=== PATIENT | female | born 1945 | race Caucasian/White ===

== ENCOUNTER 2017-02-13 15:58 | Inpatient (IN) | payer OTHER ==
[~2017-02-13] VITALS: Ht 167.6 cm; Wt 117.1 kg
[~2017-02-13 15:58] MED LIST: ADULT LOW DOSE81 M1 PO; CALCIUM 600 +1 EACH PO; CALCIUM500 M4 PO; CELEBREX200 MG PO; DIAZEPAM2 MG PO; FISH OIL CONC1 EACH PO; LO-DOSE ASPIRIN81 M2 PO; Lovenox SC; Milk Of Magnesia,MOM PO; NEURONTIN600 MG PO; NEXIUM40 MG PO; Neurontin PO; Omega III EPA + DHA PO; PAXIL20 MG PO; PROVIGIL100 MG PO; PROVIGIL200 MG PO; Paxil PO; Percocet 5/325,Endoc PO; Rebif SC; Valium PO; ZOCOR40 MG PO; celeBREX PO; predniSONE PO
[2017-02-13 16:50] LABS: HEMATOCRIT 44.8 % (36.0-46.0); HEMOGLOBIN 14.9 G/DL (11.9-15.5); MCH 31.6 PG (29.0-34.0); MCHC 33.3 G/DL (30.0-36.0); MCV 94.9 FL (83-99); PLATELET COUNT 243 K/uL (156-360); RBC DIS.WIDTH-CV 12.9 % (11.8-14.6); RBC DIS.WIDTH-SD 45.4 % (39-53); RED BLOOD COUNT 4.72 M/uL (3.80-5.20); WHITE BLOOD COUNT 15.1 K/uL (4.1-10.2)
[2017-02-13 17:00] LABS: CHLORIDE 98 mEq/L (99-109); POTASSIUM 4.7 mEq/L (3.7-5.4); SODIUM 135 mEq/L (136-147)
[2017-02-13 17:01] LABS: GLUCOSE 124 mg/dL (70-99)
[2017-02-13 17:05] LABS: CREATININE 0.9 mg/dL (0.6-1.3); GFR ESTIMATE (CALCULATED) > 59 mL/min/
[2017-02-13 17:06] LABS: UREA NITROGEN (BUN) 14 mg/dL (9-23)
[2017-02-13 17:12] LABS: TROP-I INTERPRETATION NEGATIVE; TROPONIN-I < 0.01 ng/mL (0.0-0.30)
[2017-02-13 19:25] LABS: BASE EXCESS 2.6 mEq/L (-3 to +3); BICARBONATE 28.9 mEq/L (22-26); CARBOXY HGB 1.6 % (0-5); COMMENTS - BLOOD GASES A+C+; DEVICE 840VENT; FI02 60 %; METHEMOGLOBIN 0.9 % (0-1.5); MODE SPONT; PCO2 50 mm Hg (35-45); PEEP 6 CM/H20; PO2 84 mm Hg (80-100); PRES. SUPPORT 12 CM/H2O; SITE RR; TOTAL RESP RATE 18 resp/min; pH 7.37 (7.35-7.45)
[2017-02-14] MEDS ORDERED: CITALOPRAM HBR40 MG PO (00:01)
[2017-02-14] MEDS ORDERED: ARIPIPRAZOLE2 MG PO (00:01)
[2017-02-14] MEDS ORDERED: GABAPENTIN600 MG PO (00:03)
[2017-02-14] MEDS ORDERED: REBIF REBI44 MCG/0.5 SC (00:04)
[2017-02-14] MEDS ORDERED: TOLTERODINE TART2 MG PO (00:05)
[2017-02-14] MEDS ORDERED: OXYCODONE-APAP1 EACH PO (00:07)
[2017-02-14] MEDS ORDERED: SIMVASTATIN40 MG PO (00:08)
[2017-02-14] MEDS ORDERED: MELOXICAM15 MG PO (00:08)
[2017-02-14] MEDS ORDERED: FLOVENT DISKUS1 DISK IH (00:10)
[2017-02-14] MEDS ORDERED: VENTOLIN HFA18 GM IH (00:13)
[2017-02-14] MEDS ORDERED: VITAMIN B-6100 MG PO (00:23)
[2017-02-14] MEDS ORDERED: VITAMIN C500 M1 PO (00:24)
[2017-02-14 03:51] VITALS: BP 155/70
[2017-02-14 05:20] LABS: ALBUMIN 3.4 g/dL (3.2-4.8); CHLORIDE 104 mEq/L (99-109); POTASSIUM 4.2 mEq/L (3.7-5.4); SODIUM 139 mEq/L (136-147)
[2017-02-14 05:23] LABS: TOTAL PROTEIN 6.4 g/dL (6.4-8.3)
[2017-02-14 05:25] LABS: TOTAL BILIRUBIN 0.4 mg/dL (0.0-1.0)
[2017-02-14 05:26] LABS: ALKALINE PHOSPHATASE 87 IU/L (3-129); CREATININE 0.8 mg/dL (0.6-1.3); GFR ESTIMATE (CALCULATED) > 59 mL/min/
[2017-02-14 05:28] LABS: AST (GOT) 27 IU/L (2-34); GLUCOSE 204 mg/dL (70-99); UREA NITROGEN (BUN) 15 mg/dL (9-23)
[2017-02-14 05:29] LABS: ALT (GPT) 29 IU/L (3-49)
[2017-02-14 07:32] VITALS: BP 155/72
[2017-02-14 08:28] LABS: BASE EXCESS 1.3 mEq/L (-3 to +3); BICARBONATE 25.9 mEq/L (22-26); CARBOXY HGB 0.9 % (0-5); COMMENTS - BLOOD GASES A+C+; DEVICE HHFNC; FI02 50 %; METHEMOGLOBIN 1.2 % (0-1.5); O2 FLOW 35 L/MIN; PCO2 40 mm Hg (35-45); PO2 71 mm Hg (80-100); SITE LR; TOTAL RESP RATE 20 resp/min; pH 7.42 (7.35-7.45)
[2017-02-14 12:02] VITALS: BP 135/75
[2017-02-14 16:31] VITALS: BP 146/81
[2017-02-14 20:17] VITALS: BP 134/68
[2017-02-14 23:49] VITALS: BP 144/67
[2017-02-15 03:15] VITALS: BP 163/79
[2017-02-15 06:32] LABS: BASOPHIL (%) 0.1 % (0-1); EOSINOPHIL (%) 0 % (0-5); HEMATOCRIT 36.3 % (36.0-46.0); IMMATURE GRANULOCYTE (%) 1.8 % (0.0-0.7); LYMPHOCYTE (%) 9.7 % (15-42); LYMPHOCYTE COUNT 1.7 K/uL (1.0-2.8); MCH 31.3 PG (29.0-34.0); MCHC 32.2 G/DL (30.0-36.0); MCV 97.1 FL (83-99); MONOCYTE (%) 3.4 % (3-12); MONOCYTE COUNT 0.6 K/uL (0-0.8); NEUTROPHIL COUNT 14.7 K/uL (1.8-6.4); PLATELET COUNT 217 K/uL (156-360); RBC DIS.WIDTH-CV 13.2 % (11.8-14.6); RBC DIS.WIDTH-SD 47.6 % (39-53); WHITE BLOOD COUNT 17.3 K/uL (4.1-10.2)
[2017-02-15 06:33] LABS: HEMOGLOBIN 11.7 G/DL (11.9-15.5); RED BLOOD COUNT 3.74 M/uL (3.80-5.20)
[2017-02-15 06:39] LABS: CHLORIDE 109 MEQ/L (99-109); CREATININE 0.7 MG/DL (0.6-1.3); GFR ESTIMATE (CALCULATED) > 59 mL/min/; GLUCOSE 191 mg/dL (70-99); POTASSIUM 4.5 MEQ/L (3.7-5.4); SODIUM 143 MEQ/L (136-147)
[2017-02-15 06:45] LABS: UREA NITROGEN (BUN) 24 mg/dL (9-23)
[2017-02-15 07:38] VITALS: BP 143/69
[2017-02-15 12:22] VITALS: BP 136/65
[2017-02-15 16:13] LABS: APPEARANCE CLEAR ((CLEAR)); BILIRUBIN NEGATIVE; BLOOD NEGATIVE; COLOR YELLOW ((YELLOW)); GLUCOSE (STRIP) >=500; KETONES NEGATIVE; LEUKOCYTES NEGATIVE; NITRITE NEGATIVE; PROTEIN (STRIP) NEGATIVE; SPECIFIC GRAVITY 1.027 (1.000-1.030); UCUL ADDED? NO; UROBILINOGEN 0.2 MG/DL (0.2-1.0)
[2017-02-15 16:18] VITALS: BP 148/66
[2017-02-16 00:48] VITALS: BP 150/70
[2017-02-16 04:37] VITALS: BP 148/77
[2017-02-16 05:47] LABS: BASOPHIL (%) 0.1 % (0-1); EOSINOPHIL (%) 0 % (0-5); HEMATOCRIT 35.5 % (36.0-46.0); HEMOGLOBIN 11.5 G/DL (11.9-15.5); LYMPHOCYTE (%) 11.7 % (15-42); LYMPHOCYTE COUNT 1.8 K/uL (1.0-2.8); MCH 31.4 PG (29.0-34.0); MCHC 32.4 G/DL (30.0-36.0); MONOCYTE (%) 4.2 % (3-12); MONOCYTE COUNT 0.6 K/uL (0-0.8); NEUTROPHIL COUNT 12.5 K/uL (1.8-6.4); PLATELET COUNT 209 K/uL (156-360); RBC DIS.WIDTH-CV 13.3 % (11.8-14.6); RBC DIS.WIDTH-SD 47.5 % (39-53); RED BLOOD COUNT 3.66 M/uL (3.80-5.20); WHITE BLOOD COUNT 15.4 K/uL (4.1-10.2)
[2017-02-16 06:48] LABS: CHLORIDE 107 MEQ/L (99-109); CREATININE 0.7 MG/DL (0.6-1.3); GFR ESTIMATE (CALCULATED) > 59 mL/min/; GLUCOSE 204 mg/dL (70-99); POTASSIUM 4.4 MEQ/L (3.7-5.4); SODIUM 140 MEQ/L (136-147); UREA NITROGEN (BUN) 23 mg/dL (9-23)
[2017-02-16 07:35] VITALS: BP 153/68
[2017-02-16 12:41] VITALS: BP 133/63
[2017-02-16 19:02] VITALS: BP 157/67
[2017-02-16 23:39] VITALS: BP 159/79
[2017-02-17 04:10] VITALS: BP 148/70
[2017-02-17 07:00] VITALS: BP 137/72
[2017-02-17 08:22] LABS: C DIFF TOXIN NEGATIVE (NEGATIVE)
[2017-02-17] MEDS ORDERED: FLORASTOR250 MG PO (10:40)
[2017-02-17] MEDS ORDERED: LOPERAMIDE2 MG PO (10:40)
[2017-02-17] MEDS ORDERED: CEFDINIR300 MG PO (10:40)
[2017-02-17] MEDS ORDERED: PREDNISONE10 MG PO (10:40)
[2017-02-17 11:00] VITALS: BP 139/71
[2017-02-17 11:04] LABS: HEMATOCRIT 36.7 % (36.0-46.0); HEMOGLOBIN 12.1 G/DL (11.9-15.5); MCH 31.3 PG (29.0-34.0); MCV 94.8 FL (83-99); PLATELET COUNT 203 K/uL (156-360); RBC DIS.WIDTH-CV 13.1 % (11.8-14.6); RBC DIS.WIDTH-SD 45.2 % (39-53); RED BLOOD COUNT 3.87 M/uL (3.80-5.20); WHITE BLOOD COUNT 15.1 K/uL (4.1-10.2)
[2017-02-17 11:35] LABS: CHLORIDE 107 MEQ/L (99-109); CREATININE 0.7 MG/DL (0.6-1.3); GFR ESTIMATE (CALCULATED) > 59 mL/min/; GLUCOSE 131 mg/dL (70-99); POTASSIUM 3.4 MEQ/L (3.7-5.4); SODIUM 144 MEQ/L (136-147); UREA NITROGEN (BUN) 25 mg/dL (9-23)
[2017-02-17 13:01] LABS: MAGNESIUM 2.2 mg/dl (1.3-2.7)
== END 2017-02-17 13:57 | disposition home health service (06) | DRG 871 ==
LOC: EME 15:58 → ENRESERV 22:19 → 4EAST 22:19 → 5EAST 22:19 → EDOF 22:19 → ENRESERV 02-14 00:53 → 5EAST 02-14 01:51 → ENRESERV 02-14 03:11 → 4EAST 02-14 03:55 → ENRESERV 02-16 19:55 → 2EAST 02-16 22:36
PROVIDERS: Emergency Medicine; Hospitalist; Internal Medicine
DX: A41.9 Sepsis, unspecified organism (principal); J96.01 Acute respiratory failure with hypoxia; Z68.41 Body mass index [BMI] 40.0-44.9, adult; J44.0 Chronic obstructive pulmonary disease with (acute) lower respiratory infection; J44.1 Chronic obstructive pulmonary disease with (acute) exacerbation; J20.8 Acute bronchitis due to other specified organisms; Z96.642 Presence of left artificial hip joint; K21.9 Gastro-esophageal reflux disease without esophagitis; F32.9 Major depressive disorder, single episode, unspecified; I44.0 Atrioventricular block, first degree; I25.10 Atherosclerotic heart disease of native coronary artery without angina pectoris; G35 Multiple sclerosis; G89.29 Other chronic pain; J00 Acute nasopharyngitis [common cold]; F17.210 Nicotine dependence, cigarettes, uncomplicated; K59.00 Constipation, unspecified; E78.5 Hyperlipidemia, unspecified; E87.6 Hypokalemia; E66.9 Obesity, unspecified; Z88.2 Allergy status to sulfonamides; Z99.81 Dependence on supplemental oxygen; Z95.0 Presence of cardiac pacemaker; Z79.82 Long term (current) use of aspirin
CPT/HCPCS: 36600; 71020; 71275; 80048; 80053; 80202; 81003; 82803; 83605; 83630; 83735; 84484; 85025; 85027; 87040; 87449; 87493; 87502; 93005; 94002; 94640; 94640 76; 94644; 94760; 94799; 97530 GP; 99202; 99281; 99285; C1753; J0456; J1650; J2543; J2930; J3370; J7030; J7050; J7512